=== PATIENT | male | born 1970 | race Caucasian/White ===

== ENCOUNTER 2017-09-29 03:02 | Emergency (ER) | payer OTHER, SELFPAY ==
[~2017-09-29] VITALS: Ht 175.3 cm; Wt 86.2 kg
[~2017-09-29 03:02] MED LIST: APAP500; CEPHALEXIN 500500 M3 PO; IBUPROFEN 800800 M1 PO; NORCO 5-325 TA1 EACH PO
[2017-09-29] MEDS ORDERED: KEFLEX500 M1 PO (03:39)
[2017-09-29 03:56] VITALS: BP 121/81
== END 2017-09-29 03:57 | disposition home or self-care (01) ==
LOC: M.ERS 03:02
DX: S61.411A Laceration without foreign body of right hand, initial encounter (principal); F17.200 Nicotine dependence, unspecified, uncomplicated; W26.0XXA Contact with knife, initial encounter; Y93.89 Activity, other specified; Y92.89 Other specified places as the place of occurrence of the external cause; Y99.8 Other external cause status